=== PATIENT | female | born 1985 | race Caucasian/White ===

== ENCOUNTER 2023-08-08 15:48 | Emergency (ER) | payer MEDICAID ==
[~2023-08-08] VITALS: Ht 175.3 cm; Wt 68.0 kg
[2023-08-08 15:58] VITALS: O2SAT 98
[2023-08-08] MEDS ORDERED: DIPHENHYDRAMINE 50MG/ML VIAL IM STA (16:01)
[2023-08-08] MEDS ORDERED: LORAZEPAM 2MG/ML INJ IM STA (16:01)
[2023-08-08] MEDS ORDERED: HALOPERIDOL LACTATE 5MG/ML VIAL IM STA (16:01)
[2023-08-08 16:26] LABS: HEMOGLOBIN. 10.8 g/dL (12.0-16.0); MEAN CORPUSCULAR HEMOGLOBIN 23.2 pg (28.0-32.0); MEAN CORPUSCULAR VOLUME 74.7 fL (81.0-99.0); MEAN PLATELET VOLUME 7.6 fl (7.4-10.4); PLATELET 221 x1000/uL (130-400); RED BLOOD CELL COUNT 4.68 mill/uL (4.2-5.4); RED CELL DISTRIBUTION WIDTH 21.3 % (11.6-14.6); WHITE BLOOD COUNT 5.7 x1000/uL (4.5-11.0)
[2023-08-08 16:31] LABS: DIFFERENTIAL COMMENT 1
[2023-08-08 16:48] LABS: ALANINE AMINOTRANSFERASE 7 IU/L (10-49); ASPARTATE AMINOTRANSFERASE 26 IU/L (<34); BILIRUBIN TOTAL 0.3 mg/dL (0.1-1.0); CALCIUM 7.9 mg/dL (8.7-10.4); CARBON DIOXIDE 21 mEq/L (21-32); CHLORIDE 101 mEq/L (98-107); CREATININE 0.5 mg/dL (0.6-1.0); ETHANOL BLOOD 446 mg/dL (<10); GLUCOSE 94 mg/dL (70-105); POTASSIUM 3.7 mEq/L (3.5-5.1); PROTEIN TOTAL 7.7 g/dL (6.0-8.3); SODIUM 137 mEq/L (136-145); UREA NITROGEN BLOOD 7 mg/dL (9-23)
[2023-08-08 16:58] LABS: CLARITY URINE CLEAR (CLEAR); COLOR URINE YELLOW (YELLOW); GLUCOSE URINE NEGATIVE (NEGATIVE); KETONES URINE NEGATIVE (NEGATIVE); LEUKOCYTE ESTERASE URINE NEGATIVE (NEGATIVE); NITRITE URINE NEGATIVE (NEGATIVE); OCCULT BLOOD URINE NEGATIVE (NEGATIVE); PH URINE 5.5 (4.5-8.0); PROTEIN URINE NEGATIVE (NEGATIVE); SPECIFIC GRAVITY URINE 1.005 (1.005-1.030); UROBILINOGEN URINE 0.2 E.U./dL (0.2-1.0)
[2023-08-08 17:17] LABS: *AMPHETAMINES SCREEN URINE NEGATIVE (NEGATIVE); *BARBITURATES SCREEN URINE NEGATIVE (NEGATIVE); *BENZODIAZEPINES SCREEN URINE NEGATIVE (NEGATIVE); *COCAINE SCREEN URINE NEGATIVE (NEGATIVE); CANNABINOID URINE SCREEN NEGATIVE (NEGATIVE); ECSTASY MDMA SCREEN URINE NEGATIVE (NEGATIVE); METHADONE URINE SCREEN Neg (NEGATIVE); OPIATES URINE SCREEN NEGATIVE (NEGATIVE); PHENCYCLIDINE URINE SCREEN NEGATIVE (NEGATIVE)
[2023-08-08 20:50] LABS: ANISOCYTOSIS 2+; HYPOCHROMASIA 1+; MICROCYTOSIS 2+; PLATELET ESTIMATE NORMAL
[2023-08-08 22:53] VITALS: BP 129/80; PULSE 109; RESP 18; TEMP 98.1
== END 2023-08-08 23:01 | disposition home or self-care (01) ==
LOC: ER 15:48
DX: R41.82 Altered mental status, unspecified (principal); R45.1 Restlessness and agitation; Z87.01 Personal history of pneumonia (recurrent)
CPT/HCPCS: 80053; 80305; 81003; 80320; 85025; 36415; 93005; 96372; 99291; J1200; J1630; J2060; Z7610 ×2; G0480